=== PATIENT | male | born 1970 | race Caucasian/White ===

== ENCOUNTER 2017-05-02 14:55 | Emergency (ER) | payer MEDICARE ==
[2017-05-02] MEDS ORDERED: ATIVAN ONE (15:32)
[2017-05-02] MEDS ORDERED: GEODON IM ONE (15:34)
[2017-05-02 15:39] LABS: Basophils % (Auto) 0.2 % (0.0-1.8); Eosinophils % (Auto) 0.5 % (0.0-4.3); Hematocrit 46.3 % (35.5-45.6); Hemoglobin 14.8 gm/dl (11.8-15.2); Mean Corpuscular HGB Conc 32 % (32-34); Mean Corpuscular Hemoglobin 29 pg (28-32); Mean Corpuscular Volume 89 fl (84-94); Platelet Count 222 K/mm3 (140-440); Red Blood Count 5.19 M/mm3 (3.65-5.03); Red Cell Distribution Width 15.8 % (13.2-15.2); White Blood Count 8.3 K/mm3 (4.5-11.0)
[2017-05-02 15:50] LABS: Urine Drugs of Abuse Note Disclamer
[2017-05-02 15:59] LABS: Anion Gap 21 mmol/L; BUN/Creatinine Ratio 18.75; Blood Urea Nitrogen 15 mg/dL (9-20); Calcium 9.5 mg/dL (8.4-10.2); Carbon Dioxide 23 mmol/L (22-30); Chloride 100.8 mmol/L (98-107); Glucose 88 mg/dL (75-100); Potassium 4.1 mmol/L (3.6-5.0); Sodium 141 mmol/L (137-145)
[2017-05-02 16:20] LABS: Bilirubin,Urine NEG (Negative); Blood,Urine NEG (Negative); Ketones,Urine TR mg/dL (Negative); Leukocyte Esterase,Urine NEG (Negative); Nitrite,Urine NEG (Negative); Urobilinogen,Urine < 2.0 mg/dL (<2.0)
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
[2017-05-02] MEDS ORDERED: GEODON IM PRN (19:10)
[2017-05-02] MEDS ORDERED: TYLENOL PO PRN (19:12)
[2017-05-02] MEDS ORDERED: ALUM-MAG HYDROX-SIMETH 200-200-20MG/5ML PO PRN (19:12)
[2017-05-02] MEDS ORDERED: MILK OF MAGNESIA PO PRN (19:12)
--- NOTE | 2017-05-03 16:35 | Consultation ---
History of Present Illness - Reason for Consult Consult date: 05/03/17 Reason for consult: Mental Health Evaluation Requesting physician: MITCHELL PARKS - Chief Complaint Chief complaint: "echolalia" - History of Present Psychiatric Illness The patient is a 46-year-old male that has a history of autism presenting to [facility] for aggressive behavior. Today patient is calm during the assessment. When asked a question, the patient would repeat what you say (echolalia). Per the staff no behavioral disturbances overnight. No gestures of SI/HI's and AVH's. Medications and Allergies Allergies Allergy/AdvReac Type Severity Reaction Status Date / Time No Known Allergies Allergy Verified 05/02/17 18:50 Home Medications Medication Instructions Recorded Confirmed Last Taken Type Divalproex Sodium 250 mg PO DAILY 05/02/17 05/02/17 Unknown History Divalproex Sodium 500 mg PO BID 05/02/17 05/02/17 Unknown History Active Meds: Active Medications Acetaminophen (Tylenol) 650 mg PO Q4HR PRN PRN Reason: Pain MILD(1-3)/Fever >100.5/LAM Al Hydrox/Mg Hydrox/Simethicone (Alum-Mag Hydrox-Simeth [phone]/5ml) 30 ml PO Q4HR PRN PRN Reason: Indigestion Divalproex Sodium (Depakote Dr) 250 mg PO DAILY JEREMI Divalproex Sodium (Depakote Dr) 500 mg PO DAILY JEREMI Last Admin: 05/03/17 10:25 Dose: 500 mg Magnesium Hydroxide (Milk Of Magnesia) 30 ml PO Q12HR PRN PRN Reason: Constipation Ziprasidone (Geodon) 10 mg IM Q12H PRN PRN Reason: Agitation Stop: 05/04/17 07:11 Past psychiatric history - Past Medical History Past Medical History: other (Unable to assess) Past Surgical History: Other (Unable to assess) - past Psychiatric treatment and history psychiatric treatment history: Unable to assess psy hx and fam psy hx. - Social History Social history: lives with family Mental Status Exam - Vital signs Last Vital Signs Temp 99.0 F 05/03/17 09:48 Pulse 80 05/03/17 09:48 Resp 20 05/03/17 09:48 BP 121/83 05/03/17 09:48 Pulse Ox 99 05/03/17 09:53 - Exam Narrative exam: Unable to complete MSE. Results Result Diagrams: 05/02/17 15:30 05/02/17 15:30 All other labs normal. Assessment and Plan Assessment and plan: Impression: Historical Dx: Autism. Today patient is calm during the assessment. Lilia prsent with this patient. Recommendation/Plan: Evaluate 1013 in 24 hours. Gather collateral information to determine proper dispo.
--- NOTE | 2017-05-05 13:10 | Progress Note ---
Subjective - Reason for Consult Consult date: 05/05/17 Reason for consult: Psychiatry Follow-up - Chief Complaint Chief complaint: "echolalia" The patient is a 46-year-old male that has a history of autism presenting to [facility] for aggressive behavior. Today patient is calm during the assessment. Patient continue to repeat the questions when asked. He was observed eating his breakfast during the assessment. Per the staff, no behavioral disturbances noted. I spoke with his brother Paulo Mckenna [phone] and he stated this was the first aggressive episode the patient has had in 10 years. He stated that the patient's medications are managed by his PCP at [facility]. No gestures of SI/HI's. Mental Status Exam - Vital signs Last Vital Signs Temp 98.6 F 05/05/17 11:46 Pulse 84 05/05/17 11:46 Resp 16 05/05/17 11:46 BP 132/88 05/05/17 11:46 Pulse Ox 96 05/05/17 11:46 - Exam Narrative exam: MSE: Appearance: calm Behavior: regular eye contact Speech: echolalia Mood: unable to assess Affect: unable to assess Thought Process: unable to assess Thought Content: no gestures of SI/HI's and AVH's Motor Activity: lying in bed Cognition: unable to assess Insight: limited Judgment: limited Assessment and Plan Impression: Historical Dx: Autism. Today patient is calm during the assessment. Echolalia present with this patient. Recommendation/Plan: Rescind 1013. Patient will follow up with his PCP at [facility], per his brother Paulo Mckenna.
[2017-05-05 19:47] VITALS: BP 134/76
== END 2017-05-05 22:48 ==
LOC: ED 14:55 → EEVIPCON 14:55 → ED 05-05 22:48
DX: F84.0 Autistic disorder (principal); R45.1 Restlessness and agitation
CPT/HCPCS: 36415; 80048; 80164; 80307; 81001; 82550; 85025; 99285; G0480; 80320; J2060; J3486